=== PATIENT | female | born 1995 | race Caucasian/White ===

== ENCOUNTER 2018-07-27 17:00 | Emergency (ER) | payer OTHER | END 2018-07-27 17:47 | disposition home or self-care (01) | LOC: NAV ERS 17:00 | DX: T78.3XXA Angioneurotic edema, initial encounter (principal) | CPT/HCPCS: 99283 ==

== ENCOUNTER 2019-03-27 18:28 | Emergency (ER) | payer BC, OTHER ==
[2019-03-27] MEDS ORDERED: Acetaminophen 500 MG TAB ONE (18:51)
[2019-03-27] MEDS ORDERED: Ibuprofen 200 MG TAB ONE (18:55)
== END 2019-03-27 19:00 | disposition home or self-care (01) ==
LOC: NAV ERS 18:28
DX: J11.1 Influenza due to unidentified influenza virus with other respiratory manifestations (principal); B34.9 Viral infection, unspecified; I10 Essential (primary) hypertension; Z87.891 Personal history of nicotine dependence
CPT/HCPCS: 87804; 99283